=== PATIENT | female | born 1980 | race Caucasian/White ===

== ENCOUNTER → 2020-04-05 | Outpatient (CLI) | payer BC ==
[~2020-04-05] VITALS: Ht 160 cm; Wt 94.7 kg
[2020-04-05] VITALS (12 sets, daily range): BP systolic 96–127; BP diastolic 50–86; PULSE 73–84
[~2020-04-05] MED LIST: 00186-0370-20 IH; FASENRA30 MG/1 ML SQ; PRIL40 PO; PROVENTIL0.09 MG/A1 IH; SINGULAIR 110 MG/TAB PO; VENLAFAXINE225 MG PO; ZYRTEC 10MG10 MG PO
[2020-04-05 10:06] LABS: PROTHROMBIN TIME 10.9 SECONDS (9.7-12.8)
== END ==
LOC: COL.RAD 09:30
DX: K76.0 Fatty (change of) liver, not elsewhere classified (principal); R16.0 Hepatomegaly, not elsewhere classified
CPT/HCPCS: 32109

== ENCOUNTER → 2020-10-13 | Outpatient (CLI) | payer BC | LOC: MC.RAD 07:58 | DX: N64.4 Mastodynia (principal); Z98.82 Breast implant status ==

== ENCOUNTER → 2021-05-10 | Outpatient (CLI) | payer BC | LOC: MC.RAD 07:45 | DX: N63.12 Unspecified lump in the right breast, upper inner quadrant (principal) ==

== ENCOUNTER → 2022-01-07 | Outpatient (CLI) | payer BC | LOC: MC.RAD 07:00 | DX: N63.10 Unspecified lump in the right breast, unspecified quadrant (principal) ==

== ENCOUNTER → 2023-11-27 | Outpatient (CLI) | payer BC ==
[2006-03-06 10:00] VITALS: BP 97/51; PULSE 63; TEMP 96.9
== END ==
LOC: MC.RAD 08:49
DX: Z12.31 Encounter for screening mammogram for malignant neoplasm of breast (principal)